=== PATIENT | female | born 1970 | race Hispanic/Latino ===

== ENCOUNTER 2016-10-31 13:13 | Day surgery (SDC) | payer MEDICAID ==
--- NOTE | 2016-10-31 13:43 | CP.SDSHP ---
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 - Previous Medical/Surgical History Cardiac: Other Pulmonary: Other Endocrine/Metabolic: Other Neuro: Other Misc: Other Pain: 6.Severe Pain Previous Surgical History: Inguinal hernia repair - Allergies Allergies: Allergies amoxicillin trihydrate [From Augmentin] Allergy (Verified 05/31/16 20:04) ITCHING banana Allergy (Verified 05/31/16 20:04) RASH latex Allergy (Verified 05/31/16 20:04) RASH potassium clavulanate [From Augmentin] Allergy (Verified 05/31/16 20:04) ITCHING sulfamethazine Allergy (Verified 05/31/16 20:04) RASH sulfamethoxazole [From Bactrim] Allergy (Verified 05/31/16 20:04) RASH trimethoprim [From Bactrim] Allergy (Verified 05/31/16 20:04) RASH meperidine HCl [From Demerol] Adverse Reaction (Verified 05/31/16 20:04) VOMITING - Physical Exam Mental Status: Alert & Oriented x3 Neuro: WNL Heart: WNL Lungs: WNL GI: WNL - {Optional Preform as Required} Breast: Other Abdomen: Other Rectal: Other Integument: Other 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 Pt NPO status was confirmed. All Pre-op testing and clearance was in the chart. Pt has exhausted all conservative treatment at this time and is opting for surgical intervention. Pt was explained procedure and post-operative course. All pt's questions were answered to satisfaction. No guarantees were made. Pt understands all risks, benefits and complications of procedure. Pt will follow-up with Dr. Heart Pt. Evaluated Today:Candidate for Anesthesia & Procedure: Yes - Date & Time Date: 10/31/16 Time: 16:10 Short Stay Discharge - Short Stay Discharge Admitting Diagnosis/Reason for Visit: S82.62XK Disposition: HOME/ ROUTINE Referrals: FAMILY PROVIDER,NO [Primary Care Provider] - Follow-up: Please follow up with Dr. Heart within 1 week Instructions: RICE Therapy (GEN), Crutch Instructions (DC), Crutch Instructions (GEN), Oxycodone/Acetaminophen (By mouth), Narcotic-Analgesic/ Acetaminophen (By mouth) Additional Instructions (Diet, Activity): Non-weightbearing to Left lower extremity with crutches Progress Note/Discharge Note with Instructions: Patient in good/stable condition for discharge home. Pt to resume medications per medical reconciliation. Resume regular diet. Please keep dressing clean, dry, & intact to surgical site, use plastic bag over bandage for showering, wear post op shoe at all times when ambulating, call clinic if you see signs of infection (redness, swelling, malodor), please make an appointment to see Dr. Heart in office/clinic within 1 week for post-op check.
[2016-10-31 14:04] VITALS: BMI 34.8
[2016-10-31] MEDS ORDERED: Lidocaine 1% Inj (20ml) IJ ONE (14:13)
[2016-10-31] MEDS ORDERED: Bupivacaine 0.5% 50 ML IJ ONE (14:13)
[2016-10-31] MEDS ORDERED: Clindamycin 600 MG in Sodium Chloride 0.9% 100 ML IVPB ONE (14:13)
[2016-10-31] MEDS ORDERED: Lactated Ringer's 1,000 ML IV SCH (14:15)
[2016-10-31] MEDS ORDERED: Propofol 10 mg/ml Inj (20 ML) ONE (16:19)
[2016-10-31] MEDS ORDERED: Midazolam 2 MG/2 ML VIAL ONE (16:20)
[2016-10-31] MEDS ORDERED: Dexamethasone 4 mg/1 ml ONE (16:40)
[2016-10-31] MEDS ORDERED: Sevoflurane - Inhalation Anesthetic Liq (250 ml) ONE (16:59)
[2016-10-31] MEDS ORDERED: Bupivacaine 0.5% Inj(30mL) ONE (17:35)
[2016-10-31] MEDS ORDERED: Bupivacaine 0.5% Inj(30mL) IJ ONE (17:50)
[2016-10-31] MEDS ORDERED: Lactated Ringer's 1,000 ML IV ONE (18:07)
--- NOTE | 2016-10-31 18:08 | CP.PCM.PN ---
Subjective - Date & Time of Evaluation Date of Evaluation: 10/31/16 Time of Evaluation: 13:00 - Subjective Subjective: 46 y/o female presents to [facility] for surgical excision of lateral malleolus fracture fragment and repair of lateral ankle ligaments. Patient states that she fell in May and injured her ankle. Patient was nonweightbearing with cast and crutches for four weeks. Following that she was full weightbearing with a lace up ankle support. Patient states that she is still having pain while ambulating and is now requesting surgical intervention. Objective - Vital Signs/Intake and Output Intake and Output: 10/31/16 10/31/16 06:59 18:59 Intake Total 0 Balance 0 - Medications Medications: Current Medications Lactated Ringer's (Lactated Ringer's) 1,000 mls @ 150 mls/hr IV .[id number] HARI - Additional Findings Additional findings: Vascular: DP and PT pulses palpable 2/4. CFT < 3 seconds to all digits. Skin temperature is warm to warm from proximal to distal. No erythema noted. Mild edema noted to left lateral ankle Derm: No open lesions noted. Neuro: Protective sensation intact. Pain sensation intact. Biomech/Musc: Patient presents with antalgic gait, with slight limp to left side. Patient presents with slight shoulder drop to right shoulder, and right hip higher than left during gait. Increased internal rotation of left lower extremity during swing phase. Delayed heel off with left lower extremity. Decreased ankle joint ROM with mild pain and no crepitus to left. Decreased dorsiflexion at ankle joint with knee extended, increased with knee flexed. Positive anterior drawer sign noted to left ankle as well as increased talar tilt. Pain with palpation of ATFL, CFL, and PTFL on the left. Subtalar joint ROM is full without pain. MTJ ROM is full without pain or crepitus. 1st ray ROM is full without pain or crepitus. Assessment and Plan - Assessment and Plan (Free Text) Assessment: Pt was seen and examined in [facility]. Biomechanical analysis performed. Pt NPO status was confirmed. All Pre-op testing and clearance was in the chart. Pt has exhausted all conservative treatment at this time and is opting for surgical intervention. Pt was explained procedure and post-operative course. All pt's questions were answered to satisfaction. No guarantees were made. Pt understands all risks, benefits and complications of procedure. Pt will follow-up with Dr. Heart
[2016-10-31] MEDS ORDERED: HYDROmorphone 0.5 mg/0.5 ml ISec IVP PRN (18:09)
--- NOTE | 2016-10-31 18:10 | PCM.SURG1 ---
Surgeon's Initial Post Op Note - Surgeon's Notes Surgeon: Una BLACK Engineer Third Assistant: Vannesa PGY3 Type of Anesthesia: General LMA Anesthesia Administered By: Anup Pre-Operative Diagnosis: Left fibular fracture nonunion Operative Findings: See dictation Post-Operative Diagnosis: SAME Operation Performed: Left foot excision of osseous fragments and repair of lateral ankle ligaments Specimen/Specimens Removed: None Estimated Blood Loss: EBL {In ML}: 5 Blood Products Given: N/A Drains Used: No Drains Post-Op Condition: Good Date of Surgery/Procedure: 10/31/16 Time of Surgery/Procedure: 15:00
--- NOTE | 2016-11-01 20:55 | OP ---
PROCEDURE DATE: 10/31/2016 SURGEON: Dr. Dar Heart. ROUGH ROUNDER: PREOPERATIVE DIAGNOSIS: Nonunion distal lateral malleolus fracture of the left lower extremity. POSTOPERATIVE DIAGNOSIS: Nonunion distal lateral malleolus fracture of the left lower extremity. PROCEDURES: Excision of fracture fragment, left lateral malleolus, with primary repair of lateral an kle ligaments. ANESTHESIA: General. HEMOSTASIS: Thigh tourniquet at 325 mmHg. DESCRIPTION OF PROCEDURE: The patient was brought to the operating room and positioned supine on the operating room table. A bump was placed under the left hip and the leg was raised off of the table with a bump behind the lower leg. After induction of general anesthesia, the patient was prepped and draped in the usual sterile manner. An Esmarch bandage was used to exsanguinate the foot and ankle and the tourniquet was inflated. A short linear incision was made over the distal aspect of the late ral malleolus extending slightly inferior to the talus. Utilizing meticulous sharp and blunt dissect ion, the incision was deepened through the subcutaneous layer. All bleeders encountered were clamped , cut and coagulated with a Bovie unit. No major neurovascular structures were encountered. A linea r incision was made into the periosteum over the fibula and synovial fluid extruded into the incision . The fracture fragment was easily identified and there was noted to be no osseous bridging of the f ragment. The fragment was inspected and found to be rather large. The original plan had been to exc ise the fragment; however, due to the size of the fragment, an attempt was made to fixate the fractur e with a cannulated screw. The K-wire was driven into the fibula through the fracture fragment and u tilizing intraoperative fluoroscopy, placement was confirmed. A cannulated screw was driven over the fracture fragment; however, the fracture fragment fragmented during placement of the screw. The scr ew and K-wire were therefore removed and the fracture fragment was excised as was the original plan. The surgical site was then irrigated with sterile saline solution. The peroneal tendons were examin ed and found to be intact. A Mitek anchor was then placed into the fibula and with the foot in maxim al dorsiflexion and eversion, the calcaneal fibular ligament was repaired and reinforced. The surgic al site was then irrigated with sterile saline solution. The subcutaneous layer was then repaired wi th 3-0 Vicryl suture and the skin was repaired with 4-0 nylon suture. A postoperative injection of 0 .5% plain Marcaine was administered. A total of 15 mL was administered. A dry sterile compressive d ressing was applied and the tourniquet was deflated. There was noted to be instant hyperemic respons e to all 5 digits. A [id number] posterior splint was then applied with the ankle in dorsiflexion and slight eversion. The patient was stable throughout the entire procedure and tolerated the proce dure well. The patient was returned to the recovery room in stable condition. Verbal and written in structions were provided for the patient as were prescriptions for pain management including Percocet and antibiotics including Keflex 500 mg 3 times a day. She was instructed on nonweightbearing with crutches. Dar Heart DPM cc: 750 TT: 11/01/2016 20:54:49 monique
[2016-11-02 15:44] VITALS: BP 130/84; PULSE 88; RESP 18; TEMP 97.3; O2SAT 99
== END 2016-10-31 19:50 | disposition home or self-care (01) ==
LOC: H.OPSURG 13:13
PROVIDERS: ATTEND Podiatrist Foot & Ankle Surgery
DX: S82.62XK Displaced fracture of lateral malleolus of left fibula, subsequent encounter for closed fracture with nonunion (principal); X58.XXXD Exposure to other specified factors, subsequent encounter; Z88.1 Allergy status to other antibiotic agents; Z88.8 Allergy status to other drugs, medicaments and biological substances

== ENCOUNTER 2017-03-24 20:02 | Emergency (ER) | payer MEDICAID ==
[2017-03-24 20:04] VITALS: BMI 34.8
[2017-03-24 20:14] VITALS: RESP 16; O2SAT 98
[2017-03-24] MEDS ORDERED: Sodium Chloride 0.9% 1,000 ML IV STA ×2 (20:46→21:50)
--- NOTE | 2017-03-24 20:49 | ED PDOC ---
HPI: Abdomen Time Seen by Provider: 03/24/17 20:23 Chief Complaint (Nursing): GI Problem Chief Complaint (Provider): Nausea History Per: Patient History/Exam Limitations: no limitations Onset/Duration Of Symptoms: Mins Additional Complaint(s): Patient is a 46 year old female with a past medical history of rheumatoid arthritis, fibromyalgia, asthma, and depression presenting to the emergency department for sudden, "heaving" nausea after getting a "whiff of food" with associated general discomfort. Notes that she was discharged from [facility] this afternoon for the same symptoms, for which she was given Zofran. Attributes her medication, unsatisfactory experience at [facility], and the cessation of her monthly infusions for her RA to her sudden nausea. Denies dysuria and other complaints. PCP: Dr. Orta. Past Medical History Reviewed: Historical Data, Nursing Documentation, Vital Signs Vital Signs: Last Vital Signs Temp 98.2 F 03/24/17 20:08 Pulse 101 H 03/24/17 20:08 Resp 16 03/24/17 20:08 BP 131/92 H 03/24/17 20:08 Pulse Ox 98 03/24/17 20:59 - Medical History PMH: Anxiety, Arthritis, Asthma, Bronchitis (4 MONTH AGO), CAD (early), Depression, Fibromyalgia, HTN, Migraine, Rheumatoid Arthritis Denies: Chronic Kidney Disease - Surgical History Surgical History: Hernia Repair - Family History Family History: States: Unknown Family Hx, CAD (Father) - Social History Current smoker - smoking cessation education provided: No Ex-Smoker (has not smoked in the last 12 months): Yes Alcohol: None Drugs: Denies - Immunization History Hx Tetanus Toxoid Vaccination: No Hx Influenza Vaccination: Yes (2014) Hx Pneumococcal Vaccination: Yes (2013) - Home Medications Home Medications: Ambulatory Orders Medication Instructions Recorded Ondansetron [Zofran Odt] 1 tab PO Q8H PRN #30 odt 08/31/14 Lidocaine 5% [Lidoderm] 1 ea TD DAILY #30 patch 10/05/16 Alendronate Sodium 70 mg PO SUN 10/31/16 Amitriptyline HCl 100 mg PO DAILY 10/31/16 Aspirin [Adult Low Dose Aspirin EC] 81 mg PO DAILY 10/31/16 Atorvastatin Calcium 20 mg PO DAILY 10/31/16 Biotin [Luis Biotin] 10,000 mcg PO DAILY 10/31/16 Calcium Carbonate [Calcium] 1,500 mg PO DAILY 10/31/16 Carvedilol [Coreg] 25 mg PO Q12 10/31/16 Cephalexin [Keflex] 500 mg PO TID 10/31/16 Clonazepam 0.5 mg PO Q12 10/31/16 Cyclobenzaprine [Flexeril] 5 mg PO Q8 PRN 10/31/16 DULoxetine [Cymbalta] 20 mg PO Q12 10/31/16 Estradiol 1 mg PO DAILY 10/31/16 Estradiol [Vagifem] 10 mcg PO MWF 10/31/16 Gabapentin [Neurontin] 600 mg PO Q8 10/31/16 Meclizine HCl 50 mg PO DAILY PRN 10/31/16 Milnacipran HCl [Savella] 50 mg PO Q12 10/31/16 Multivit/Iron/Folic Acid/Hb179 1 tab PO DAILY 10/31/16 [Luis Multi For Women Tab] Nabumetone [Relafen] 500 mg PO Q12 10/31/16 [place]-3 Fatty Acids [Fish Oil] 300 mg PO DAILY 10/31/16 Sumatriptan Succinate [Imitrex] 50 mg PO DAILY PRN 10/31/16 Trazodone HCl 150 mg PO DAILY 10/31/16 amLODIPine [Norvasc] 5 mg PO DAILY 10/31/16 oxyCODONE/Acetaminophen [Percocet 1 mg PO Q6 PRN 10/31/16 5/325 mg Tab] Famotidine [Pepcid] 20 mg PO BID #28 tab 03/24/17 Metoclopramide [Reglan] 10 mg PO TID PRN #15 tab 03/24/17 - Allergies Allergies/Adverse Reactions: Allergies Allergy/AdvReac Type Severity Reaction Status Date / Time amoxicillin trihydrate Allergy ITCHING Verified 05/31/16 20:04 [From Augmentin] banana Allergy RASH Verified 05/31/16 20:04 latex Allergy RASH Verified 05/31/16 20:04 potassium clavulanate Allergy ITCHING Verified 05/31/16 20:04 [From Augmentin] sulfamethazine Allergy RASH Verified 05/31/16 20:04 sulfamethoxazole Allergy RASH Verified 05/31/16 20:04 [From Bactrim] trimethoprim [From Bactrim] Allergy RASH Verified 05/31/16 20:04 meperidine HCl [From Demerol] AdvReac VOMITING Verified 05/31/16 20:04 Review of Systems ROS Statement: Except As Marked, All Systems Reviewed And Found Negative Constitutional: Positive for: Other (discomfort) Gastrointestinal: Positive for: Nausea Genitourinary Female: Negative for: Dysuria Physical Exam - Reviewed Nursing Documentation Reviewed: Yes Vital Signs Reviewed: Yes - Physical Exam Appears: Positive for: Well, Non-toxic, No Acute Distress Head Exam: Positive for: ATRAUMATIC, NORMAL INSPECTION, NORMOCEPHALIC Skin: Positive for: Normal Color, Warm, Dry Eye Exam: Positive for: Normal appearance, PERRL. Negative for: Scleral icterus ENT: Positive for: Other (Dry mouth) Neck: Positive for: Normal, Supple Cardiovascular/Chest: Positive for: Regular Rate, Rhythm. Negative for: Murmur Respiratory: Positive for: Normal Breath Sounds. Negative for: Accessory Muscle Use, Respiratory Distress Gastrointestinal/Abdominal: Positive for: Normal Exam, Soft. Negative for: Tenderness Back: Positive for: Normal Inspection. Negative for: Vertebral Tenderness Extremity: Positive for: Normal ROM Neurologic/Psych: Positive for: Alert, Oriented - Laboratory Results Result Diagrams: 03/24/17 21:16 03/24/17 21:16 - ECG O2 Sat by Pulse Oximetry: 98 (RA) Pulse Ox Interpretation: Normal Medical Decision Making Medical Decision Making: Time: 20:43 Initial impression: Nausea Initial plan: Labs ED Urine Dipstick ED Urine Pepcid 20 mg IVP Reglan 10 mg IV Normal Saline 1 L IV Insertion Urinalysis Reevaluation Scribe Attestation: Documented by Angie Stearns, acting as a scribe for Ayaka Rowland MD. Provider Scribe Attestation: All medical record entries made by the Scribe were at my direction and personally dictated by me. I have reviewed the chart and agree that the record accurately reflects my personal performance of the history, physical exam, medical decision making, and the department course for this patient. I have also personally directed, reviewed, and agree with the discharge instructions and disposition. 10.55p - patient feeling a whole lot better. Mucosa moisture improved. patient ready for discharge. Disposition - Clinical Impression Clinical Impression: Gastritis - Patient ED Disposition Is Patient to be Admitted: No Doctor Will See Patient In The: Office Counseled Patient/Family Regarding: Diagnosis, Need For Followup, Rx Given - Disposition Disposition: Routine/Home Disposition Time: 22:45 Condition: IMPROVED Prescriptions: Famotidine [Pepcid] 20 mg PO BID #28 tab Metoclopramide [Reglan] 10 mg PO TID PRN #15 tab PRN Reason: Nausea/Vomiting Instructions: Gastritis (ED) Forms: [facility] (Z[place]ian) - POA Present On Arrival: None
[2017-03-24 21:26] LABS: RBC URINE < 1 /hpf (0-3); URINE BACTERIA OCC (<OCC); URINE BILIRUBIN NEGATIVE (NEGATIVE); URINE BLOOD NEGATIVE (NEGATIVE); URINE COLOR YELLOW (YELLOW); URINE GLUCOSE (UA) 150 mg/dL (Normal); URINE KETONE NEGATIVE (NEGATIVE); URINE LEUKOCYTE ESTERASE NEG Leu/uL (Negative); URINE PROTEIN NEGATIVE (NEGATIVE); URINE UROBILINOGEN 0.2-1.0 mg/dL (0.2-1.0); WBC URINE 1 /hpf (0-5)
[2017-03-24 21:27] LABS: BASO % 0.1 % (0.0-2.0); HEMATOCRIT 41.8 % (34.0-47.0); LYMPH # 0.6 K/uL (1.0-4.3); LYMPH % 15.5 % (20.0-40.0); MEAN CELL VOLUME 83.8 fl (81.0-99.0); MEAN CORPUSCULAR HEMOGLOBIN 28.4 pg (27.0-31.0); MEAN CORPUSCULAR HGB CONC 33.9 g/dL (33.0-37.0); MEAN PLATELET VOLUME 7.3 fl (7.2-11.7); MONO % 1.3 % (0.0-10.0); NEUT # 3.2 K/uL (1.8-7.0); NEUT % 83.1 % (50.0-75.0); RED CELL DISTRIBUTION WIDTH 12.8 % (11.5-14.5); WHITE BLOOD COUNT 3.8 K/uL (4.8-10.8)
[2017-03-24 21:32] LABS: ALB/GLOB RATIO 1.4 (1.0-2.1); ALKALINE PHOSPHATASE 85 U/L (38-126); ALT/SGPT 43 U/L (9-52); AST/SGOT 28 U/L (14-36); BILIRUBIN,TOTAL 0.4 mg/dl (0.2-1.3); BLOOD UREA NITROGEN 12 mg/dl (7-17); CARBON DIOXIDE 23 mmol/L (22-30); CHLORIDE 102 mmol/L (98-107); GFR AFRICAN-AMERICAN > 60; GLUCOSE,RANDOM 143 mg/dL (65-105); LIPASE 70 U/L (23-300); POTASSIUM 4.3 MMOL/L (3.6-5.0); SODIUM 138 mmol/l (132-148); TOTAL PROTEIN 7.6 G/DL (6.3-8.2)
[2017-03-24 23:07] VITALS: BP 139/86; PULSE 71; TEMP 97.6
== END 2017-03-24 23:55 | disposition home or self-care (01) ==
LOC: H.ER 20:02
DX: K29.70 Gastritis, unspecified, without bleeding (principal); F32.9 Major depressive disorder, single episode, unspecified; F41.9 Anxiety disorder, unspecified; I10 Essential (primary) hypertension; M79.7 Fibromyalgia; I25.10 Atherosclerotic heart disease of native coronary artery without angina pectoris; J45.909 Unspecified asthma, uncomplicated; Z79.82 Long term (current) use of aspirin; Z88.0 Allergy status to penicillin

== ENCOUNTER 2017-04-07 20:57 | Emergency (ER) | payer MEDICAID ==
[2017-04-07 20:57] VITALS: BMI 34.8
[2017-04-07 21:17] VITALS: BP 122/73; PULSE 75; RESP 16; TEMP 98.6; O2SAT 99
[2017-04-07] MEDS ORDERED: diaZEpam 10 mg/2 ml Inj IM ONE (21:56)
--- NOTE | 2017-04-07 22:06 | ED PDOC ---
HPI: Back Time Seen by Provider: 04/07/17 21:23 Chief Complaint (Nursing): Back Pain Chief Complaint (Provider): back pain History Per: Patient History/Exam Limitations: no limitations Previous Symptoms: Back Pain Additional Complaint(s): 46yo F Ed for eval of acute lower back pain noted today after"stepping wrong " and felt intense pain to mid spine without radiation to LE, numbness/tingling in LE, abd pain, hip pain, N/V/dizziness/[place], or fall. admits to hx of L4-L5 lumbar herniation. no hematuira or dysuria. - Risk Factors AAA Risk Factors: Neg: Older Than 49 Years Of Age, Hypertension, Connective Tissue Disease, Marfan's Syndrome, Sonja-Danlos Syndrome, Prior AAA, 1st Degree Relative/s With AAA Past Medical History Reviewed: Historical Data, Nursing Documentation, Vital Signs Vital Signs: Last Vital Signs Temp 98.6 F 04/07/17 21:15 Pulse 75 04/07/17 21:15 Resp 16 04/07/17 21:15 BP 122/73 04/07/17 21:15 Pulse Ox 99 04/07/17 21:15 - Medical History PMH: Anxiety, Arthritis, Asthma, Bronchitis (4 MONTH AGO), CAD (early), Depression, Fibromyalgia, HTN, Migraine, Rheumatoid Arthritis Denies: Chronic Kidney Disease - Surgical History Surgical History: Hernia Repair - Family History Family History: States: Unknown Family Hx, CAD (Father) - Immunization History Hx Tetanus Toxoid Vaccination: No Hx Influenza Vaccination: Yes (2014) Hx Pneumococcal Vaccination: Yes (2013) - Home Medications Home Medications: Ambulatory Orders Medication Instructions Recorded Ondansetron [Zofran Odt] 1 tab PO Q8H PRN #30 odt 08/31/14 Lidocaine 5% [Lidoderm] 1 ea TD DAILY #30 patch 10/05/16 Alendronate Sodium 70 mg PO SUN 10/31/16 Amitriptyline HCl 100 mg PO DAILY 10/31/16 Aspirin [Adult Low Dose Aspirin EC] 81 mg PO DAILY 10/31/16 Atorvastatin Calcium 20 mg PO DAILY 10/31/16 Biotin [Luis Biotin] 10,000 mcg PO DAILY 10/31/16 Calcium Carbonate [Calcium] 1,500 mg PO DAILY 10/31/16 Carvedilol [Coreg] 25 mg PO Q12 10/31/16 Cephalexin [Keflex] 500 mg PO TID 10/31/16 Clonazepam 0.5 mg PO Q12 10/31/16 Cyclobenzaprine [Flexeril] 5 mg PO Q8 PRN 10/31/16 DULoxetine [Cymbalta] 20 mg PO Q12 10/31/16 Estradiol 1 mg PO DAILY 10/31/16 Estradiol [Vagifem] 10 mcg PO MWF 10/31/16 Gabapentin [Neurontin] 600 mg PO Q8 10/31/16 Meclizine HCl 50 mg PO DAILY PRN 10/31/16 Milnacipran HCl [Savella] 50 mg PO Q12 10/31/16 Multivit/Iron/Folic Acid/Hb179 1 tab PO DAILY 10/31/16 [Luis Multi For Women Tab] Nabumetone [Relafen] 500 mg PO Q12 10/31/16 [place]-3 Fatty Acids [Fish Oil] 300 mg PO DAILY 10/31/16 Sumatriptan Succinate [Imitrex] 50 mg PO DAILY PRN 10/31/16 Trazodone HCl 150 mg PO DAILY 10/31/16 amLODIPine [Norvasc] 5 mg PO DAILY 10/31/16 oxyCODONE/Acetaminophen [Percocet 1 mg PO Q6 PRN 10/31/16 5/325 mg Tab] Famotidine [Pepcid] 20 mg PO BID #28 tab 03/24/17 Metoclopramide [Reglan] 10 mg PO TID PRN #15 tab 03/24/17 Cyclobenzaprine [Cyclobenzaprine 10 mg PO BID #14 tab 04/07/17 HCl] - Allergies Allergies/Adverse Reactions: Allergies Allergy/AdvReac Type Severity Reaction Status Date / Time amoxicillin trihydrate Allergy ITCHING Verified 05/31/16 20:04 [From Augmentin] banana Allergy RASH Verified 05/31/16 20:04 latex Allergy RASH Verified 05/31/16 20:04 potassium clavulanate Allergy ITCHING Verified 05/31/16 20:04 [From Augmentin] sulfamethazine Allergy RASH Verified 05/31/16 20:04 sulfamethoxazole Allergy RASH Verified 05/31/16 20:04 [From Bactrim] trimethoprim [From Bactrim] Allergy RASH Verified 05/31/16 20:04 meperidine HCl [From Demerol] AdvReac VOMITING Verified 05/31/16 20:04 Review of Systems ROS Statement: Except As Marked, All Systems Reviewed And Found Negative Constitutional: Negative for: Fever, Chills Musculoskeletal: Positive for: Back Pain Physical Exam - Reviewed Nursing Documentation Reviewed: Yes Vital Signs Reviewed: Yes - Physical Exam Appears: Positive for: Non-toxic, No Acute Distress, Uncomfortable Skin: Positive for: Normal Color, Warm, DRY Cardiovascular/Chest: Positive for: Regular Rate, Rhythm Respiratory: Positive for: CNT, Normal Breath Sounds Gastrointestinal/Abdominal: Positive for: Normal Exam, Bowel Sounds, Soft Back: Positive for: Vertebral Tenderness. Negative for: L CVA Tenderness, R CVA Tenderness, Decreased ROM, Muscle Spasm Extremity: Positive for: Normal ROM Neurologic/Psych: Positive for: Alert, Oriented - ECG O2 Sat by Pulse Oximetry: 99 - Progress ED Course And Treament: pt given IM valium and torodol. Medical Decision Making Medical Decision Making: pt improved in ED, advised to use mortrin for pain control and given flexril Disposition - Clinical Impression Clinical Impression: Acute back pain - Patient ED Disposition Is Patient to be Admitted: No Counseled Patient/Family Regarding: Diagnosis, Need For Followup, Rx Given - Disposition Referrals: [facility] [Outside] Disposition: Routine/Home Disposition Time: 22:21 Condition: STABLE Prescriptions: Cyclobenzaprine [Cyclobenzaprine HCl] 10 mg PO BID #14 tab Instructions: Acute Low Back Pain (ED) Forms: [facility] ED School/Work Excuse
[2017-04-07] MEDS ORDERED: diaZEpam 10 mg/2 ml Inj ONE (22:08)
== END 2017-04-07 22:30 | disposition home or self-care (01) ==
LOC: H.ER 20:57
DX: M54.2 Cervicalgia (principal); F32.9 Major depressive disorder, single episode, unspecified; F41.9 Anxiety disorder, unspecified; I10 Essential (primary) hypertension; I25.10 Atherosclerotic heart disease of native coronary artery without angina pectoris; M79.7 Fibromyalgia; Z79.82 Long term (current) use of aspirin; Z88.0 Allergy status to penicillin
CPT/HCPCS: 96372; 99282; J1885; J3360

== ENCOUNTER 2017-04-27 10:52 | Observation (INO) | payer MEDICAID ==
[2017-04-27 11:02] VITALS: BMI 31.6
[2017-04-27] MEDS ORDERED: Sodium Chloride 0.9% 500 ML IV STA (11:19)
--- NOTE | 2017-04-27 11:31 | ED PDOC ---
HPI: Chest Pain Time Seen by Provider: 04/27/17 11:08 Chief Complaint (Nursing): Chest Pain Chief Complaint (Provider): Chest pain History Per: Patient History/Exam Limitations: no limitations Onset/Duration Of Symptoms: Days (Today) Current Symptoms Are (Timing): Gone Now Additional Complaint(s): Pt. with chest pain sternal this morning. Gone now. No nausea, vomit, diarrhea , weakness, headaches, dizziness, cough. No leg pain. Has had similar in the past and was angina 2 years ago. On estrogen for years. Took 81mg asa in the morning. Past Medical History Reviewed: Nursing Documentation, Vital Signs Vital Signs: Last Vital Signs Temp 96 F L 04/27/17 11:01 Pulse 76 04/27/17 11:06 Resp 16 04/27/17 11:01 BP 131/84 04/27/17 11:01 Pulse Ox 96 04/27/17 11:39 - Medical History PMH: Anxiety, Arthritis, Asthma, Bronchitis (4 MONTH AGO), CAD (early), Depression, Fibromyalgia, HTN, Hyperlipidemia, Migraine, Rheumatoid Arthritis Denies: Chronic Kidney Disease - Surgical History Surgical History: Hernia Repair - Family History Family History: States: Unknown Family Hx, CAD (Father) - Immunization History Hx Tetanus Toxoid Vaccination: No Hx Influenza Vaccination: Yes (2014) Hx Pneumococcal Vaccination: Yes (2013) - Home Medications Home Medications: Ambulatory Orders Medication Instructions Recorded Ondansetron [Zofran Odt] 1 tab PO Q8H PRN #30 odt 08/31/14 Lidocaine 5% [Lidoderm] 1 ea TD DAILY #30 patch 10/05/16 Alendronate Sodium 70 mg PO SUN 10/31/16 Amitriptyline HCl 100 mg PO DAILY 10/31/16 Aspirin [Adult Low Dose Aspirin EC] 81 mg PO DAILY 10/31/16 Atorvastatin Calcium 20 mg PO DAILY 10/31/16 Biotin [Luis Biotin] 10,000 mcg PO DAILY 10/31/16 Calcium Carbonate [Calcium] 1,500 mg PO DAILY 10/31/16 Carvedilol [Coreg] 25 mg PO Q12 10/31/16 Cephalexin [Keflex] 500 mg PO TID 10/31/16 Clonazepam 0.5 mg PO Q12 10/31/16 Cyclobenzaprine [Flexeril] 5 mg PO Q8 PRN 10/31/16 DULoxetine [Cymbalta] 20 mg PO Q12 10/31/16 Estradiol 1 mg PO DAILY 10/31/16 Estradiol [Vagifem] 10 mcg PO MWF 10/31/16 Gabapentin [Neurontin] 600 mg PO Q8 10/31/16 Meclizine HCl 50 mg PO DAILY PRN 10/31/16 Milnacipran HCl [Savella] 50 mg PO Q12 10/31/16 Multivit/Iron/Folic Acid/Hb179 1 tab PO DAILY 10/31/16 [Luis Multi For Women Tab] Nabumetone [Relafen] 500 mg PO Q12 10/31/16 [place]-3 Fatty Acids [Fish Oil] 300 mg PO DAILY 10/31/16 Sumatriptan Succinate [Imitrex] 50 mg PO DAILY PRN 10/31/16 Trazodone HCl 150 mg PO DAILY 10/31/16 amLODIPine [Norvasc] 5 mg PO DAILY 10/31/16 oxyCODONE/Acetaminophen [Percocet 1 mg PO Q6 PRN 10/31/16 5/325 mg Tab] Famotidine [Pepcid] 20 mg PO BID #28 tab 03/24/17 Metoclopramide [Reglan] 10 mg PO TID PRN #15 tab 03/24/17 Back Brace [Ultra Support] 1 each MC DAILY #1 each 04/07/17 Cyclobenzaprine [Cyclobenzaprine 10 mg PO BID #14 tab 04/07/17 HCl] - Allergies Allergies/Adverse Reactions: Allergies Allergy/AdvReac Type Severity Reaction Status Date / Time amoxicillin trihydrate Allergy ITCHING Verified 05/31/16 20:04 [From Augmentin] banana Allergy RASH Verified 05/31/16 20:04 latex Allergy RASH Verified 05/31/16 20:04 potassium clavulanate Allergy ITCHING Verified 05/31/16 20:04 [From Augmentin] sulfamethazine Allergy RASH Verified 05/31/16 20:04 sulfamethoxazole Allergy RASH Verified 05/31/16 20:04 [From Bactrim] trimethoprim [From Bactrim] Allergy RASH Verified 05/31/16 20:04 meperidine HCl [From Demerol] AdvReac VOMITING Verified 05/31/16 20:04 Review of Systems ROS Statement: Except As Marked, All Systems Reviewed And Found Negative Cardiovascular: Positive for: Chest Pain Physical Exam - Reviewed Nursing Documentation Reviewed: Yes Vital Signs Reviewed: Yes - Physical Exam Appears: Positive for: Non-toxic, No Acute Distress Head Exam: Positive for: ATRAUMATIC, NORMAL INSPECTION, NORMOCEPHALIC Skin: Positive for: Normal Color, Warm, DRY Eye Exam: Positive for: EOMI, Normal appearance, PERRL ENT: Positive for: Normal ENT Inspection Neck: Positive for: Normal, Painless ROM Cardiovascular/Chest: Positive for: Regular Rate, Rhythm, Chest Non Tender. Negative for: Edema Respiratory: Positive for: CNT, Normal Breath Sounds Gastrointestinal/Abdominal: Positive for: Normal Exam, Bowel Sounds, Soft. Negative for: Tenderness Back: Positive for: Normal Inspection. Negative for: L CVA Tenderness, R CVA Tenderness Extremity: Positive for: Normal ROM. Negative for: Tenderness, Pedal Edema Neurologic/Psych: Positive for: Alert, Oriented - Laboratory Results Result Diagrams: 04/27/17 11:50 04/27/17 11:50 Interpretation Of Abn Labs: no acute - ECG ECG: Positive for: Interpreted By Me, Viewed By Me ECG Rhythm: Positive for: Normal QRS, Sinus Rhythm, Right Bundle Branch Block ( incomplete) O2 Sat by Pulse Oximetry: 96 Pulse Ox Interpretation: Normal - Radiology X-Ray: Read By Radiologist X-Ray Interpretation: No Acute Disease - Progress ED Course And Treament: 1251: Stable. AAOx3. Pain free. Will admit for further eval chest pain. Spoke with Joe for Dr. Luna. Will admit. Disposition - Clinical Impression Clinical Impression: Acute chest pain - Patient ED Disposition Is Patient to be Admitted: No Counseled Patient/Family Regarding: Studies Performed, Diagnosis - Disposition Disposition Time: 11:52 Condition: STABLE - Pt Status Changed To: Hospital Disposition Of: Inpatient - Admit Certification Admit to Inpatient:: After my assessment, the patient will require hospitalization for at least two midnights. This is because of the severity of symptoms shown, intensity of services needed, and/or the medical risk in this patient being treated as an outpatient. - POA Present On Arrival: None Core Measure Indicators: Chest Pain
--- NOTE | 2017-04-27 11:56 | RAD ---
HISTORY: pain COMPARISON: 03/26/2016 FINDINGS: LUNGS: The lungs are well inflated and clear. PLEURA: No significant pleural effusion identified, no pneumothorax apparent. CARDIOVASCULAR: Normal. OSSEOUS STRUCTURES: No significant abnormalities. VISUALIZED UPPER ABDOMEN: Normal. OTHER FINDINGS: None. IMPRESSION: No active pulmonary disease.
[2017-04-27 12:14] LABS: BASO % 0.4 % (0.0-2.0); EOS # 0.2 K/uL (0.0-0.7); EOS % 3.3 % (0.0-4.0); HEMATOCRIT 37.2 % (34.0-47.0); LYMPH # 1.3 K/uL (1.0-4.3); LYMPH % 20.4 % (20.0-40.0); MEAN CELL VOLUME 83.8 fl (81.0-99.0); MEAN CORPUSCULAR HEMOGLOBIN 28.5 pg (27.0-31.0); MEAN PLATELET VOLUME 7.5 fl (7.2-11.7); MONO # 0.5 K/uL (0.0-0.8); MONO % 7.3 % (0.0-10.0); NEUT # 4.3 K/uL (1.8-7.0); NEUT % 68.6 % (50.0-75.0); NRBC % 0.1 % (0.0-0.0); RED CELL DISTRIBUTION WIDTH 13.8 % (11.5-14.5); WHITE BLOOD COUNT 6.3 K/uL (4.8-10.8)
[2017-04-27 12:19] LABS: PARTIAL THROMBOPLASTIN TIME 23.9 Seconds (25.6-37.1)
[2017-04-27 12:23] LABS: ALB/GLOB RATIO 1.5 (1.0-2.1); ALKALINE PHOSPHATASE 60 U/L (38-126); ALT/SGPT 34 U/L (9-52); AST/SGOT 26 U/L (14-36); BILIRUBIN,TOTAL 0.5 mg/dl (0.2-1.3); BLOOD UREA NITROGEN 15 mg/dl (7-17); CALCIUM 8.1 mg/dL (8.4-10.2); CARBON DIOXIDE 26 mmol/L (22-30); CHLORIDE 104 mmol/L (98-107); GFR AFRICAN-AMERICAN > 60; GLUCOSE,RANDOM 83 mg/dL (65-105); POTASSIUM 3.9 MMOL/L (3.6-5.0); SODIUM 140 mmol/l (132-148); TOTAL PROTEIN 6.4 G/DL (6.3-8.2)
[2017-04-27] MEDS ORDERED: Albuterol HFA 90 mcg/actuation (8 g) IH PRN (15:20)
--- NOTE | 2017-04-27 16:07 | CARD ---
APPROVED REPORT EKG Measurement Heart [id number] <Conclusion> Poor data quality, interpretation may be adversely affected Normal sinus rhythm Incomplete right bundle branch block Borderline ECG
[2017-04-27] MEDS ORDERED: Influenza Vaccine 18yr & older 0.5 ML/45 MCG SYR IM ONE (16:20)
[2017-04-27] MEDS: Nabumetone 500 MG TAB PO SCH (17:42)
--- NOTE | 2017-04-27 21:17 | CP.PCM.CON ---
History of Present Illness - History of Present Illness History of Present Illness: PT WITH CHEST PRESSURE X 5MIN TODAY. EPISODE OCCURED AT REST AND DID NOT INCREASE WITH AMBULATION. RESOLVED ON OWN. PT ON ASA DAILY. PT HAS HX OF HTN , DYSLIPIDEMIA, TOB HX, AND FAM HX OF CAD. 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 HOWEVER SHE WAS STARTED ON ASA, MAYBE DUE TO MILD CAD. Review of Systems - Constitutional Constitutional: As Per HPI. absent: Anorexia, Chills, Daytime Sleepiness, Excessive Sweating, Fatigue, Fever, Frequent Falls, Headache, Increased Appetite , Lethargy, Malaise, Night Sweats, Snoring, Sleep Apnea, Weight Gain, Weight Loss, Weakness, Other - EENT Eyes: As Per HPI. absent: Blind Spots, Blurred Vision, Change in Vision, Decreased Night Vision, Diplopia, Discharge, Dry Eye, Exophthalmos, Floaters, Irritation, Itchy Eyes, Loss of Peripheral Vision, Pain, Photophobia, Requires Corrective Lenses, Sees Flashes, Spots in Vision, Tunnel Vision, Other Visual Disturbances, Loss of Vision, Other Ears: As Per HPI. absent: Decreased Hearing, Ear Discharge, Ear Pain, Tinnitus , Abnormal Hearing, Disequilibrium, Dizziness, Other Nose/Mouth/Throat: As Per HPI. absent: Epistaxis, Nasal Congestion, Nasal Discharge, Nasal Obstruction, Nasal Trauma, Nose Pain, Post Nasal Drip, Sinus Pain, Sinus Pressure, Bleeding Gums, Change in Voice, Dental Pain, Dry Mouth, Dysphagia, Halitosis, Hoarsness, Lip Swelling, Mouth Lesions, Mouth Pain, Odynophagia, Sore Throat, Throat Swelling, Tongue Swelling, Facial Pain, Neck Pain, Neck Mass, Other - Breasts Breasts: As Per HPI. absent: Change in Shape, Mass, Pain, Nipple Discharge, Nipple Inversion, Skin Changes, Swelling, Other - Cardiovascular Cardiovascular: Chest Pain at Rest. absent: As Per HPI, Acrocyanosis, Chest Pain, Chest Pain with Activity, Claudication, Diaphoresis, Dyspnea, Dyspnea on Exertion, Edema, Irregular Heart Rhythm, Pain Radiating to Arm/Neck/Jaw, Leg Edema, Leg Ulcers, Lightheadedness, Orthopnea, Palpitations, Paroxysmal Nocturnal Dyspnea, Pedal Edema, Radiating Pain, Rapid Heart Rate, Slow Heart Rate, Syncope, Other - Respiratory Respiratory: As Per HPI. absent: Cough, Dyspnea, Hemoptysis, Dyspnea on Exertion, Wheezing, Snoring, Stridor, Pain on Inspiration, Chest Congestion, Excessive Mucous Production, Change in Mucous Color, Pain with Coughing, Other - Gastrointestinal Gastrointestinal: As Per HPI. absent: Abdominal Pain, Belching, Bloating, Change in Bowel Habits, Change in Stool Character, Coffee Ground Emesis, Constipation, Cramping, Diarrhea, Dyspepsia, Dysphagia, Early Satiety, Excessive Flatus, Fecal Incontinence, Heartburn, Hematemesis, Hematochezia, Loose Stools, Melena, Nausea, Odynophagia, Temesmus, Vomiting, Other - Genitourinary Genitourinary: As Per HPI. absent: Change in Urinary Stream, Difficulty Urinating, Dysuria, Flank Pain, Hematuria, Pyuria, Nocturia, Urinary Incontinence, Urinary Frequency, Urinary Hesitance, Urinary Urgency, Voiding Freq/Small Amts, Freq UTI, Hx Renal/Bladder Calculi, Hx /Renal Surgery, Bladder Distension, Other - Reproductive: Female Reproductive:Female: As Per HPI. absent: Amenorrhea, Amenorrhea/ Control, Currently Menstual, Cycle <21 Days, Cycle >35 Days, Cycle Variable, Menses 1-7 Days, Menses >/= 8 Days, Menses Variable, Cycle > 4 Weeks Between, No Menses for 6 Months, Heavy Menses, Light Menses, Normal Menses, Spotting Between Cycles , S/P Hysterectomy, Menopausal, Post Menopausal, Premenarche, Abnormal Vaginal Bleeding, Dysmenorrhea, Dyspareunia, Genital Lesions, Genital Pruritis, Pelvic Pain, Prolapse Symptoms, Sexual Dysfunction, Vaginal Discharge, Vaginal Dryness , Vaginal Odor, Vaginal Pruritis, Other - Menstruation Menstruation: As Per HPI. absent: Amenorrhea, Amenorrhea/ Control, Currently Menstual, Cycle <21 Days, Cycle >35 Days, Cycle Variable, Menses 1-7 Days, Menses >/= 8 Days, Menses Variable, Cycle > 4 Weeks Between, No Menses for 6 Months, Heavy Menses, Light Menses, Normal Menses, Spotting Between Cycles , S/P Hysterectomy, Menopausal, Post Menopausal, Premenarche, Abnormal Vaginal Bleeding, Dysmenorrhea, Other - Musculoskeletal Musculoskeletal: As Per HPI. absent: Abnormal Gait, Arthralgias, Atrophy, Back Pain, Deformity, Joint Swelling, Limited Range of Motion, Loss of Height, Muscle Cramps, Muscle Weakness, Myalgias, Neck Pain, Numbness, Radiating Pain into Limb, Stiffness, Tingling, Other - Integumentary Integumentary: As Per HPI. absent: Acne, Alopecia, Bleeding Lesions, Change in Hair, Change in Nails, Change in Pigmentation, Changing Lesions, Dry Skin, Erythema, Furuncle, Hirsutism, Lesions, New Lesions, Non-Healing Lesions, Photosensitivity, Pruritus, Rash, Skin Pain, Skin Ulcer, Sores, Striae, Swelling , Unusual Bruising, Wounds, Jaundice, Other - Neurological Neurological: As Per HPI. absent: Abnormal Gait, Abnormal Hearing, Abnormal Movements, Abnormal Speech, Behavioral Changes, Burning Sensations, Confusion, Convulsions, Disequilibrium, Dizziness, Numbness, Focal Weakness, Frequent Falls , Headaches, Lack of Coordination, Loss of Vision, Memory Loss, Paresthesias, Radicular Pain, Restless Legs, Sensory Deficit, Syncope, Tingling, Tremor, Vertigo, Weakness, Other Visual Disturbances, Other - Psychiatric Psychiatric: As Per HPI. absent: Abnormal Sleep Pattern, Anhedonia, Anxiety, Auditory Hallucinations, Behavioral Changes, Change in Appetite, Change in Libido, Confusion, Depression, Difficulty Concentrating, Hallucinations, Homicidal Ideation, Hopelessness, Irritability, Memory Loss, Mood Swings, Panic Attacks, Paranoia, Suicidal Ideation, Visual Hallucinations, Tactile Hallucinations, Other - Endocrine Endocrine: As Per HPI. absent: Change in Body Appearance, Change in Libido, Cold Intolorance, Deepening of Voice, Excessive Sweating, Fatigue, Flushing, Heat Intolorance, Increase in Ring/Shoe/Hat Size, Palpitations, Polydipsia, Polyphagia, Polyuria, Other - Hematologic/Lymphatic Hematologic: As Per HPI. absent: Easy Bleeding, Easy Bruising, Lymphadenopathy , Other Past Patient History - Infectious Disease Hx of Infectious Diseases: None - Past Medical History & Family History Past Medical History?: Yes - Past Social History Smoking Status: Former Smoker Chewing Tobacco Use: No Cigar Use: No Alcohol: Occasional Drugs: Denies - CARDIAC Hx Cardiac Disorders: Yes - PULMONARY Hx Respiratory Disorders: Yes - NEUROLOGICAL Hx Neurological Disorder: Yes - HEENT Hx HEENT Problems: No - RENAL Hx Chronic Kidney Disease: No - ENDOCRINE/METABOLIC Hx Endocrine Disorders: No - HEMATOLOGICAL/ONCOLOGICAL Hx Blood Disorders: No - INTEGUMENTARY Hx Dermatological Problems: No - MUSCULOSKELETAL/RHEUMATOLOGICAL Hx Musculoskeletal Disorders: Yes Hx Falls: Yes (fall on 04/21/17) Hx Rheumatoid Arthritis: Yes - GASTROINTESTINAL Hx Gastrointestinal Disorders: No - GENITOURINARY/GYNECOLOGICAL Hx Genitourinary Disorders: No - PSYCHIATRIC Hx Psychophysiologic Disorder: Yes Hx Anxiety: Yes Hx Depression: Yes Hx Substance Use: No - SURGICAL HISTORY Hx Surgeries: Yes Hx Cardiac Catheterization: Yes Hx Hysterectomy: Yes - ANESTHESIA Hx Anesthesia: Yes Hx Anesthesia Reactions: No Hx Malignant Hyperthermia: No Meds Allergies/Adverse Reactions: Allergies Allergy/AdvReac Type Severity Reaction Status Date / Time amoxicillin trihydrate Allergy ITCHING Verified 05/31/16 20:04 [From Augmentin] banana Allergy RASH Verified 05/31/16 20:04 latex Allergy RASH Verified 05/31/16 20:04 potassium clavulanate Allergy ITCHING Verified 05/31/16 20:04 [From Augmentin] sulfamethazine Allergy RASH Verified 05/31/16 20:04 sulfamethoxazole Allergy RASH Verified 05/31/16 20:04 [From Bactrim] trimethoprim [From Bactrim] Allergy RASH Verified 05/31/16 20:04 meperidine HCl [From Demerol] AdvReac VOMITING Verified 05/31/16 20:04 - Medications Medications: Current Medications Albuterol (Ventolin Hfa 90 Mcg/Actuation (8 G)) 2 puff IH Q4H PRN PRN Reason: Shortness of Breath Alendronate Sodium (Fosamax) 70 mg PO SUN [facility] Amitriptyline HCl (Elavil) 100 mg PO HS [facility] Amlodipine Besylate (Norvasc) 5 mg PO DAILY [facility] Aspirin (Aspirin Chewable) 81 mg PO DAILY [facility] Atorvastatin Calcium (Lipitor) 20 mg PO HS [facility] Carvedilol (Coreg) 25 mg PO Q12H [facility] Last Admin: 04/27/17 17:41 Dose: 25 mg Clonazepam (Klonopin) 0.25 mg PO BID [facility] Last Admin: 04/27/17 17:51 Dose: 0.25 mg Cyclobenzaprine HCl (Flexeril) 5 mg PO Q8H [facility] Last Admin: 04/27/17 17:58 Dose: 5 mg Duloxetine HCl (Cymbalta) 30 mg PO Q12H [facility] Last Admin: 04/27/17 17:42 Dose: 30 mg Enoxaparin Sodium (Lovenox) 40 mg SC DAILY [facility] PRN Reason: Protocol Gabapentin (Neurontin) 600 mg PO TID [facility] Last Admin: 04/27/17 17:41 Dose: 600 mg Home Med (Calcium Carbonate/Vitamin D3 [Caltrate 600 Plus D3 Tablet]) 1 tab PO DAILY [facility] Home Med (Estradiol [Estrace]) 1 mg PO DAILY [facility] Home Med (Estradiol [Yuvafem]) 10 mcg PV MWF [facility] Home Med (Sumatriptan [Imitrex Tab]) 50 mg PO Q2H PRN PRN Reason: Migraine headache Nabumetone (Relafen) 500 mg PO BID [facility] Last Admin: 04/27/17 17:42 Dose: 500 mg Ondansetron HCl (Zofran Tab) 4 mg PO Q8H PRN PRN Reason: Nausea/Vomiting Trazodone HCl (Desyrel) 150 mg PO HS [facility] Physical Exam - Constitutional Appears: Well - Head Exam Head Exam: ATRAUMATIC, NORMAL INSPECTION, NORMOCEPHALIC - Eye Exam Eye Exam: EOMI, Normal appearance, PERRL. absent: Conjunctival injection, Nystagmus, Periorbital swelling, Periorbital tenderness, Scleral icterus Pupil Exam: NORMAL ACCOMODATION, PERRL. absent: Fixed, Irregular, Miosis, Mydriatic, Unequal - ENT Exam ENT Exam: Mucous Membranes Moist, Normal Exam. absent: Mucous Membranes Dry, Normal External Ear Exam, Normal Oropharynx, TM's Normal Bilaterally - Neck Exam Neck exam: Positive for: Normal Inspection. Negative for: Full Rom, Lymphadenopathy, Meningismus, Tenderness, Thyromegaly - Respiratory Exam Respiratory Exam: Clear to Auscultation Bilateral, NORMAL BREATHING PATTERN. absent: Accessory Muscle Use, Chest Wall Tenderness, Decreased Breath Sounds, Prolonged Expiratory Phase, Rales, Rhonchi, Wheezes, Respiratory Distress, Stridor - Cardiovascular Exam Cardiovascular Exam: REGULAR RHYTHM, +S1, +S2, Systolic Murmur. absent: Bradycardia, Tachycardia, Clicks, Diastolic murmur, Gallop, Irregular Rhythm, JVD, RRR, Rubs, +S4 - GI/Abdominal Exam GI & Abdominal Exam: Normal Bowel Sounds, Soft. absent: Bruit, Diminished Bowel Sounds, Distended, Firm, Guarding, Hernia, Hyperactive Bowel Sounds, Hypoactive Bowel Sounds, Mass, Organomegaly, Pulsatile Mass, Rebound, Rigid, Tenderness - Rectal Exam Rectal Exam: Deferred - Extremities Exam Extremities exam: Positive for: normal inspection. Negative for: calf tenderness, full ROM, joint swelling, normal capillary refill, pedal edema, tenderness, pedal pulses present - Back Exam Back exam: NORMAL INSPECTION. absent: CVA tenderness (L), CVA tenderness (R), FULL ROM, muscle spasm, paraspinal tenderness, rash noted, tenderness, vertebral tenderness - Neurological Exam Neurological exam: Alert, CN II-XII Intact, Normal Gait, Oriented x3, Reflexes Normal - Psychiatric Exam Psychiatric exam: Normal Affect, Normal Mood - Skin Skin Exam: Dry, Intact, Normal Color, Warm Results - Vital Signs Recent Vital Signs: Last Vital Signs Temp 97.7 F 04/27/17 19:46 Pulse 72 04/27/17 19:46 Resp 20 04/27/17 19:46 BP 117/78 04/27/17 19:46 Pulse Ox 96 04/27/17 19:46 - Labs Result Diagrams: 04/27/17 11:50 04/27/17 11:50 Labs: Laboratory Results - last 24 hr 04/27/17 04/27/17 04/27/17 11:50 11:50 11:50 WBC 6.3 D RBC 4.44 Hgb 12.6 Hct 37.2 MCV 83.8 MCH 28.5 MCHC 34.0 RDW 13.8 Plt Count 148 MPV 7.5 Neut % (Auto) 68.6 Lymph % (Auto) 20.4 [place] % (Auto) 7.3 Eos % (Auto) 3.3 Baso % (Auto) 0.4 Neut # 4.3 Lymph # 1.3 [place] # 0.5 Eos # 0.2 Baso # 0.0 PT 11.5 INR 1.1 APTT 23.9 L Sodium 140 Potassium 3.9 Chloride 104 Carbon Dioxide 26 Anion Gap 13 BUN 15 Creatinine 0.7 Est GFR ( Amer) > 60 Est GFR (Non-Af Amer) > 60 Random Glucose 83 Calcium 8.1 L Total Bilirubin 0.5 AST 26 ALT 34 Alkaline Phosphatase 60 Troponin I < 0.0120 Total Protein 6.4 Albumin 3.9 Globulin 2.5 Albumin/Globulin Ratio 1.5 04/27/17 18:20 WBC RBC Hgb Hct MCV MCH MCHC RDW Plt Count MPV Neut % (Auto) Lymph % (Auto) [place] % (Auto) Eos % (Auto) Baso % (Auto) Neut # Lymph # [place] # Eos # Baso # PT INR APTT Sodium Potassium Chloride Carbon Dioxide Anion Gap BUN Creatinine Est GFR ( Amer) Est GFR (Non-Af Amer) Random Glucose Calcium Total Bilirubin AST ALT Alkaline Phosphatase Troponin I < 0.0120 Total Protein Albumin Globulin Albumin/Globulin Ratio - EKG Data EKG Interpreted by: Myself EKG shows normal: Sinus rhythm Rate: Normal Assessment & Plan (1) Acute chest pain Status: Acute (2) HTN (hypertension) Status: Acute (3) Dyslipidemia Status: Acute (4) History of tobacco use Status: Acute (5) Family history of ischemic heart disease (IHD) Status: Acute - Assessment and Plan (Free Text) Plan: CP SEEMS ATYPICAL, HOWEVER GIVEN HER RISK FACTORS AND HX WOULD RECOMMEND ECHO AND EXERCISE NUCLEAR ST. CONTINUE MEDS IS. IF ST NORMAL THEN MAY GO HOME IF ABN WILL NEED CATH. I ORDERED THE ABOVE TESTING WELL LOVENOX PROPHYLAXIS, AND PPI. 60 MIN TOTAL CARE TIME.
[2017-04-28 06:49] LABS: BASO % 0.3 % (0.0-2.0); EOS # 0.2 K/uL (0.0-0.7); EOS % 3.4 % (0.0-4.0); HEMATOCRIT 39.6 % (34.0-47.0); LYMPH # 1.8 K/uL (1.0-4.3); LYMPH % 25.4 % (20.0-40.0); MEAN CELL VOLUME 84.6 fl (81.0-99.0); MEAN CORPUSCULAR HEMOGLOBIN 28.4 pg (27.0-31.0); MEAN CORPUSCULAR HGB CONC 33.6 g/dL (33.0-37.0); MEAN PLATELET VOLUME 7.4 fl (7.2-11.7); MONO # 0.6 K/uL (0.0-0.8); MONO % 8.3 % (0.0-10.0); NEUT # 4.4 K/uL (1.8-7.0); NEUT % 62.6 % (50.0-75.0); NRBC % 0.1 % (0.0-0.0); RED CELL DISTRIBUTION WIDTH 14.1 % (11.5-14.5)
[2017-04-28 07:03] LABS: ALB/GLOB RATIO 1.5 (1.0-2.1); ALKALINE PHOSPHATASE 66 U/L (38-126); ALT/SGPT 33 U/L (9-52); AST/SGOT 25 U/L (14-36); BILIRUBIN,TOTAL 0.5 mg/dl (0.2-1.3); BLOOD UREA NITROGEN 19 mg/dl (7-17); CALCIUM 8.2 mg/dL (8.4-10.2); CARBON DIOXIDE 28 mmol/L (22-30); CHLORIDE 103 mmol/L (98-107); GFR AFRICAN-AMERICAN > 60; GLUCOSE,RANDOM 77 mg/dL (65-105); MAGNESIUM 2.2 MG/DL (1.6-2.3); POTASSIUM 4.1 MMOL/L (3.6-5.0); SODIUM 144 mmol/l (132-148); TOTAL PROTEIN 6.4 G/DL (6.3-8.2)
[2017-04-28] MEDS ORDERED: Enoxaparin 40 mg Syringe SC SCH (09:00)
[2017-04-28] MEDS ORDERED: ESTRADIOL 1 MG PO SCH (09:00)
[2017-04-28] MEDS ORDERED: Calcium-Vit D 500 mg-200 Units Tab UD PO SCH (09:00)
[2017-04-28] MEDS ORDERED: ESTRADIOL 10 MCG PV SCH (09:00)
--- NOTE | 2017-04-28 09:09 | CP.PCM.HP ---
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 ceased upon arrival toer. descrbed as midsternal and nonradiation, non reproducable. trop x 3 negative. epnding stress test and echo. cardio consult appriciated. Present on Admission - Present on Admission Any Indicators Present on Admission: No Review of Systems - Cardiovascular Cardiovascular: As Per HPI, Chest Pain Past Patient History - Infectious Disease Hx of Infectious Diseases: None - Past Medical History & Family History Past Medical History?: Yes - Past Social History Smoking Status: Former Smoker Chewing Tobacco Use: No Cigar Use: No Alcohol: Occasional Drugs: Denies - CARDIAC Hx Cardiac Disorders: Yes - PULMONARY Hx Respiratory Disorders: Yes - NEUROLOGICAL Hx Neurological Disorder: Yes - HEENT Hx HEENT Problems: No - RENAL Hx Chronic Kidney Disease: No - ENDOCRINE/METABOLIC Hx Endocrine Disorders: No - HEMATOLOGICAL/ONCOLOGICAL Hx Blood Disorders: No - INTEGUMENTARY Hx Dermatological Problems: No - MUSCULOSKELETAL/RHEUMATOLOGICAL Hx Musculoskeletal Disorders: Yes Hx Falls: Yes (fall on 04/21/17) Hx Rheumatoid Arthritis: Yes - GASTROINTESTINAL Hx Gastrointestinal Disorders: No - GENITOURINARY/GYNECOLOGICAL Hx Genitourinary Disorders: No - PSYCHIATRIC Hx Psychophysiologic Disorder: Yes Hx Anxiety: Yes Hx Depression: Yes Hx Substance Use: No - SURGICAL HISTORY Hx Surgeries: Yes Hx Cardiac Catheterization: Yes Hx Hysterectomy: Yes - ANESTHESIA Hx Anesthesia: Yes Hx Anesthesia Reactions: No Hx Malignant Hyperthermia: No Meds Allergies/Adverse Reactions: Allergies Allergy/AdvReac Type Severity Reaction Status Date / Time amoxicillin trihydrate Allergy ITCHING Verified 05/31/16 20:04 [From Augmentin] banana Allergy RASH Verified 05/31/16 20:04 latex Allergy RASH Verified 05/31/16 20:04 potassium clavulanate Allergy ITCHING Verified 05/31/16 20:04 [From Augmentin] sulfamethazine Allergy RASH Verified 05/31/16 20:04 sulfamethoxazole Allergy RASH Verified 05/31/16 20:04 [From Bactrim] trimethoprim [From Bactrim] Allergy RASH Verified 05/31/16 20:04 meperidine HCl [From Demerol] AdvReac VOMITING Verified 05/31/16 20:04 Physical Exam - Constitutional Appears: Well, Non-toxic, No Acute Distress - Head Exam Head Exam: ATRAUMATIC, NORMAL INSPECTION, NORMOCEPHALIC - Eye Exam Eye Exam: EOMI, Normal appearance, PERRL Pupil Exam: NORMAL ACCOMODATION, PERRL - ENT Exam ENT Exam: Mucous Membranes Moist, Normal Exam - Neck Exam Neck exam: Positive for: Normal Inspection - Respiratory Exam Respiratory Exam: Clear to Auscultation Bilateral, NORMAL BREATHING PATTERN - Cardiovascular Exam Cardiovascular Exam: REGULAR RHYTHM, RRR, +S1, +S2 - GI/Abdominal Exam GI & Abdominal Exam: Normal Bowel Sounds, Soft. absent: Tenderness - Extremities Exam Extremities exam: Positive for: full ROM, normal capillary refill, normal inspection, pedal pulses present - Back Exam Back exam: NORMAL INSPECTION - Neurological Exam Neurological exam: Alert, CN II-XII Intact, Normal Gait, Oriented x3, Reflexes Normal - Psychiatric Exam Psychiatric exam: Normal Affect, Normal Mood - Skin Skin Exam: Dry, Intact, Normal Color, Warm Results - Vital Signs Recent Vital Signs: Last Vital Signs Temp 97.8 F 04/28/17 08:00 Pulse 62 04/28/17 08:00 Resp 20 04/28/17 08:00 BP 141/92 H 04/28/17 08:00 Pulse Ox 97 04/28/17 08:00 - Labs Result Diagrams: 04/28/17 05:00 04/28/17 04:00 Labs: Laboratory Results - last 24 hr 04/27/17 04/27/17 04/27/17 11:50 11:50 11:50 WBC 6.3 D RBC 4.44 Hgb 12.6 Hct 37.2 MCV 83.8 MCH 28.5 MCHC 34.0 RDW 13.8 Plt Count 148 MPV 7.5 Neut % (Auto) 68.6 Lymph % (Auto) 20.4 Citrus % (Auto) 7.3 Eos % (Auto) 3.3 Baso % (Auto) 0.4 Neut # 4.3 Lymph # 1.3 Citrus # 0.5 Eos # 0.2 Baso # 0.0 PT 11.5 INR 1.1 APTT 23.9 L Sodium 140 Potassium 3.9 Chloride 104 Carbon Dioxide 26 Anion Gap 13 BUN 15 Creatinine 0.7 Est GFR ( Amer) > 60 Est GFR (Non-Af Amer) > 60 Random Glucose 83 Calcium 8.1 L Magnesium Total Bilirubin 0.5 AST 26 ALT 34 Alkaline Phosphatase 60 Troponin I < 0.0120 Total Protein 6.4 Albumin 3.9 Globulin 2.5 Albumin/Globulin Ratio 1.5 04/27/17 04/28/17 04/28/17 18:20 04:00 05:00 WBC 7.0 RBC 4.69 Hgb 13.3 Hct 39.6 MCV 84.6 MCH 28.4 MCHC 33.6 RDW 14.1 Plt Count 163 MPV 7.4 Neut % (Auto) 62.6 Lymph % (Auto) 25.4 Citrus % (Auto) 8.3 Eos % (Auto) 3.4 Baso % (Auto) 0.3 Neut # 4.4 Lymph # 1.8 Citrus # 0.6 Eos # 0.2 Baso # 0.0 PT INR APTT Sodium 144 Potassium 4.1 Chloride 103 Carbon Dioxide 28 Anion Gap 17 BUN 19 H Creatinine 0.8 Est GFR ( Amer) > 60 Est GFR (Non-Af Amer) > 60 Random Glucose 77 Calcium 8.2 L Magnesium 2.2 Total Bilirubin 0.5 AST 25 ALT 33 Alkaline Phosphatase 66 Troponin I < 0.0120 < 0.0120 Total Protein 6.4 Albumin 3.8 Globulin 2.6 Albumin/Globulin Ratio 1.5 Assessment & Plan (1) DVT prophylaxis Assessment and Plan: scd and aehose ambulation lvoenox Status: Acute (2) Acute chest pain Assessment and Plan: trops x 3 negative cardio stress/echo today dc if normal asa lovenox Status: Acute (3) Dyslipidemia Assessment and Plan: cont home meds Status: Acute (4) Family history of ischemic heart disease (IHD) Assessment and Plan: full cardio workup Status: Acute (5) HTN (hypertension) Assessment and Plan: cont home meds Status: Acute Decision To Admit - Pt Status Changed To: Hospital Disposition Of: Observation - . Bed Request Type: Telemetry Admitting Physician: Jason Luna
[2017-04-28] MEDS: Nabumetone 500 MG TAB PO SCH ×2 (09:29→18:02)
[2017-04-28 15:34] VITALS: RESP 20; TEMP 97.6; O2SAT 99
[2017-04-28 15:38] VITALS: BP 140/90; PULSE 69
--- NOTE | 2017-04-28 17:45 | CP.PCM.PN ---
Objective - Vital Signs/Intake and Output Vital Signs (last 24 hours): Temp Pulse Resp BP Pulse Ox 97.6 F 69 20 140/90 99 04/28/17 15:33 04/28/17 15:34 04/28/17 15:33 04/28/17 15:34 04/28/17 15:33 - Medications Medications: Current Medications Albuterol (Ventolin Hfa 90 Mcg/Actuation (8 G)) 2 puff IH Q4H PRN PRN Reason: Shortness of Breath Alendronate Sodium (Fosamax) 70 mg PO SUN [facility] Amitriptyline HCl (Elavil) 100 mg PO [facility] Last Admin: 04/27/17 21:44 Dose: 100 mg Amlodipine Besylate (Norvasc) 5 mg PO DAILY [facility] Last Admin: 04/28/17 09:28 Dose: Not Given Aspirin (Aspirin Chewable) 81 mg PO DAILY [facility] Last Admin: 04/28/17 09:27 Dose: Not Given Atorvastatin Calcium (Lipitor) 20 mg PO [facility] Last Admin: 04/27/17 21:44 Dose: 20 mg Calcium/Vitamin D (Oyster Shell Calcium/Vitamin D 500 Mg-200 Iu) 1 tab PO DAILY [facility] Last Admin: 04/28/17 09:29 Dose: Not Given Carvedilol (Coreg) 25 mg PO Q12H [facility] Last Admin: 04/28/17 15:34 Dose: 25 mg Clonazepam (Klonopin) 0.25 mg PO BID [facility] Last Admin: 04/28/17 09:28 Dose: Not Given Cyclobenzaprine HCl (Flexeril) 5 mg PO Q8H [facility] Last Admin: 04/28/17 15:36 Dose: 5 mg Duloxetine HCl (Cymbalta) 30 mg PO Q12H [facility] Last Admin: 04/28/17 15:35 Dose: 30 mg Enoxaparin Sodium (Lovenox) 40 mg SC DAILY [facility] PRN Reason: Protocol Last Admin: 04/28/17 09:28 Dose: Not Given Gabapentin (Neurontin) 600 mg PO TID [facility] Last Admin: 04/28/17 13:00 Dose: Not Given Home Med (Estradiol [Estrace]) 1 mg PO DAILY [facility] Home Med (Estradiol [Yuvafem]) 10 mcg PV MWF [facility] Home Med (Sumatriptan [Imitrex Tab]) 50 mg PO Q2H PRN PRN Reason: Migraine headache Nabumetone (Relafen) 500 mg PO BID [facility] Last Admin: 04/28/17 09:29 Dose: Not Given Ondansetron HCl (Zofran Tab) 4 mg PO Q8H PRN PRN Reason: Nausea/Vomiting Trazodone HCl (Desyrel) 150 mg PO HS [facility] Last Admin: 04/27/17 21:42 Dose: 150 mg - Labs Labs: 04/28/17 05:00 04/28/17 04:00 PT 11.5 Seconds (9.8-13.1) 04/27/17 11:50 INR 1.1 (0.9-1.2) 04/27/17 11:50 APTT 23.9 Seconds (25.6-37.1) L 04/27/17 11:50 Assessment and Plan (1) Acute chest pain Status: Acute (2) HTN (hypertension) Status: Acute (3) Dyslipidemia Status: Acute (4) History of tobacco use Status: Acute (5) Family history of ischemic heart disease (IHD) Status: Acute
--- NOTE | 2017-04-28 18:13 | CP.PCM.DIS ---
Provider - Provider Date of Admission: 04/27/17 12:51 Attending physician: Jason Luna MD Time Spent in preparation of Discharge (in minutes): 15 Diagnosis - Discharge Diagnosis (1) DVT prophylaxis Status: Acute (2) Acute chest pain Status: Acute (3) Dyslipidemia Status: Acute (4) Family history of ischemic heart disease (IHD) Status: Acute (5) HTN (hypertension) Status: Acute Hospital Course - Lab Results Lab Results: Most Recent Lab Values WBC 7.0 K/uL (4.8-10.8) 04/28/17 05:00 RBC 4.69 Mil/uL (3.80-5.20) 04/28/17 05:00 Hgb 13.3 g/dL (12.0-16.0) 04/28/17 05:00 Hct 39.6 % (34.0-47.0) 04/28/17 05:00 MCV 84.6 fl (81.0-99.0) 04/28/17 05:00 MCH 28.4 pg (27.0-31.0) 04/28/17 05:00 MCHC 33.6 g/dL (33.0-37.0) 04/28/17 05:00 RDW 14.1 % (11.5-14.5) 04/28/17 05:00 Plt Count 163 K/uL (130-400) 04/28/17 05:00 MPV 7.4 fl (7.2-11.7) 04/28/17 05:00 Neut % (Auto) 62.6 % (50.0-75.0) 04/28/17 05:00 Lymph % (Auto) 25.4 % (20.0-40.0) 04/28/17 05:00 Starke % (Auto) 8.3 % (0.0-10.0) 04/28/17 05:00 Eos % (Auto) 3.4 % (0.0-4.0) 04/28/17 05:00 Baso % (Auto) 0.3 % (0.0-2.0) 04/28/17 05:00 Neut # 4.4 K/uL (1.8-7.0) 04/28/17 05:00 Lymph # 1.8 K/uL (1.0-4.3) 04/28/17 05:00 Starke # 0.6 K/uL (0.0-0.8) 04/28/17 05:00 Eos # 0.2 K/uL (0.0-0.7) 04/28/17 05:00 Baso # 0.0 K/uL (0.0-0.2) 04/28/17 05:00 PT 11.5 Seconds (9.8-13.1) 04/27/17 11:50 INR 1.1 (0.9-1.2) 04/27/17 11:50 APTT 23.9 Seconds (25.6-37.1) L 04/27/17 11:50 Sodium 144 mmol/l (132-148) 04/28/17 04:00 Potassium 4.1 MMOL/L (3.6-5.0) 04/28/17 04:00 Chloride 103 mmol/L (98-107) 04/28/17 04:00 Carbon Dioxide 28 mmol/L (22-30) 04/28/17 04:00 Anion Gap 17 (10-20) 04/28/17 04:00 BUN 19 mg/dl (7-17) H 04/28/17 04:00 Creatinine 0.8 mg/dL (0.7-1.2) 04/28/17 04:00 Est GFR ( Amer) > 60 04/28/17 04:00 Est GFR (Non-Af Amer) > 60 04/28/17 04:00 Random Glucose 77 mg/dL (65-105) 04/28/17 04:00 Calcium 8.2 mg/dL (8.4-10.2) L 04/28/17 04:00 Magnesium 2.2 MG/DL (1.6-2.3) 04/28/17 04:00 Total Bilirubin 0.5 mg/dl (0.2-1.3) 04/28/17 04:00 AST 25 U/L (14-36) 04/28/17 04:00 ALT 33 U/L (9-52) 04/28/17 04:00 Alkaline Phosphatase 66 U/L (38-126) 04/28/17 04:00 Troponin I < 0.0120 ng/mL (0.00-0.120) 04/28/17 04:00 Total Protein 6.4 G/DL (6.3-8.2) 04/28/17 04:00 Albumin 3.8 g/dL (3.5-5.0) 04/28/17 04:00 Globulin 2.6 gm/dL (2.2-3.9) 04/28/17 04:00 Albumin/Globulin Ratio 1.5 (1.0-2.1) 04/28/17 04:00 Discharge Exam - Head Exam Head Exam: ATRAUMATIC, NORMAL INSPECTION, NORMOCEPHALIC Discharge Plan - Follow Up Plan Condition: STABLE Disposition: HOME/ ROUTINE Additional Instructions: cleared by cardio final dx-cp, rted prn, meds per med rec, f/u pmd
--- NOTE | 2017-04-29 02:14 | CARD ---
APPROVED REPORT Protocol: ETIENNE Test Type: Stress Nuclear Medications: ASA 81 MG, Medical History: HTN, DYSLIPIDEMA, CAD, FAMILY HISTORY CAD, CARDIA CATH. ANXIETY, ARTHRITIS, ASTHMA, BRONCHITIS, DEPRESSION, FIBROMYALGA, MIGRAINE, Target HR: 172 bpm Resting ECG: normal Resting Heart Rate: 81 bpm Resting Blood Pressure: 116/79mmHg submaximum (85%): 146 bpm TEST SUMMARY EXERCISESTAGE 103:[id number]/60.0. [id number]/79.0. PRETESTHYPERV.00:[id number]/79.0. PRETESTWARM-UP04:[id number]/79.0. EXERCISESTAGE 103:[id number]/60.0. EXERCISESTAGE 203:[id number]/70.0. [id number]/80.0. POST EXERCISE Reason for Termination: Dyspnea and Hip pain Target HR: No Max HR: 117 bpm 68% of Maximum Predicted HR: 172 bpm Exercise duration: 06:00 min:sec, 2 Stage Exercise capacity: 7.0METs Max Blood Pressure: 156/70mmHg Blood Pressure response to exercise: normal resting BP - appropriate response Heart Rate response to exercise: appropriate Chest Pain: No, none Angina index: 0 Arrhythmia: No, none ST Change: No, none Deviation: 0 mm EXAM: Myocardial Perfusion REST/STRESS Image QualityGood Imaging Protocol The imaging protocol used to acquire images was Rest Tc-99m/stress Tc-99m 1 day Rest Spect myocardial perfusion imaging was performed in supine position 45 minutes following the injection of 10 mCi of Tc-99 Myoview. Time of rest injection: 8:00 Time of rest imagin:15 At peak stress, the patient was injected intravenously with 30mCi of Tc-99 tetrofosmin after an infusion time of minutes and seconds. Time of stress injection: 11;55 Time of stress imagin:01 Gated RestStress Spect was performed 60 minutes after intravenous Tc-99 Myoview injection. The images were gated to evaluate regional wall motion and calculate ventricular ejection fraction. NUCLEAR IMAGE INTERPRETATION The rest and stress images show normal perfusion, normal contraction and thickening. LV Perfusion 1 The rest and stress images show normal perfusion. CONCLUSION 1. Negative Myoview stress test at peak Exercise level of 68% of PMHR 2. Poor Exercise tolerance because of Hip arthritis
[2017-04-30] MEDS ORDERED: ALENDRONATE 70 MG TAB PO SCH (09:00)
--- NOTE | 2017-04-30 09:43 | CARD ---
APPROVED REPORT EXAM: Two-dimensional and M-mode echocardiogram with Doppler and color Doppler. Other Information Quality : GoodRhythm : NSR INDICATION Chest Pain 2D DIMENSIONS IVSd1.18 (0.7-1.1cm)LVDd3.68 (3.9-5.9cm) LVOT Diameter1.72 (1.8-2.4cm)PWd1.04 (0.7-1.1cm) IVSs1.36 (0.8-1.2cm)LVDs2.95 (2.5-4.0cm) FS (%) 19.9 %PWs0.97 (0.8-1.2cm) M-Mode DIMENSIONS Left Atrium (MM)3.53 (2.5-4.0cm)IVSd0.85 (0.7-1.1cm) Aortic Root2.71 (2.2-3.7cm)LVDd4.74 (4.0-5.6cm) Aortic Cusp Exc.1.65 (1.5-2.0cm)PWd0.76 (0.7-1.1cm) IVSs1.29 cmFS (%) 28 % LVDs3.41 (2.0-3.8cm)PWs1.12 cm Mitral Valve MV E Kziaynaw97.3cm/sMV DECEL [id number] A Fvystozf55.9cm/s MV OSI71stO/A ratio1.0MVA (PHT)3.06cm2 TDI Lateral E' Peak V8.80cm/sMedial E' Peak V12.10cm/sE/Lateral E'8.4 E/Medial E'6.1 Pulmonary Valve PV Peak Btijclwe59.5cm/s Tricuspid Valve TR Peak Duqpmasz321rw/sRAP [id number] Peak Gr.10mmHg [id number] LEFT VENTRICLE The left ventricle is normal size. There is normal left ventricular wall thickness. The left ventricular function is normal. The left ventricular ejection fraction is within the normal range. The Ejection Fraction is 55-60%. There is normal LV segmental wall motion. The left ventricular diastolic function is normal. No left ventricle thrombus noted on this study. There is no mass noted in the left ventricle. RIGHT VENTRICLE The right ventricle is normal size. There is normal right ventricular wall thickness. The right ventricular systolic function is normal. ATRIA The left atrium size is normal. The right atrium size is normal. The interatrial septum is intact with no evidence for an atrial septal defect. AORTIC VALVE The aortic valve is normal in structure and function. No aortic regurgitation is present. There is no aortic valvular stenosis. There is no aortic valvular vegetation. MITRAL VALVE The mitral valve is normal in structure and function. There is no evidence of mitral valve prolapse. There is no mitral valve stenosis. There is no mitral valve regurgitation noted. TRICUSPID VALVE The tricuspid valve is normal in structure and function. There is no tricuspid valve regurgitation noted. There is no tricuspid valve prolapse or vegetation. There is no tricuspid valve stenosis. PULMONIC VALVE The pulmonary valve is normal in structure and function. There is no pulmonic valvular regurgitation. There is no pulmonic valvular stenosis. GREAT VESSELS The aortic root is normal in size. The IVC is normal in size and collapses >50% with inspiration. PERICARDIAL EFFUSION The pericardium appears normal. There is no pleural effusion. <Conclusion> The left ventricle is normal size. The left ventricular function is normal. The left ventricular ejection fraction is within the normal range. The Ejection Fraction is 55-60%.
== END 2017-04-28 18:45 | disposition home or self-care (01) ==
LOC: H.ER 10:52 → H.ERHOLD 12:51 → H.TEL 15:18
PROVIDERS: ADMIT Family Medicine; ATTEND Family Medicine
DX: R07.89 Other chest pain (principal); E78.5 Hyperlipidemia, unspecified; I10 Essential (primary) hypertension; J45.909 Unspecified asthma, uncomplicated; M79.7 Fibromyalgia; Z82.49 Family history of ischemic heart disease and other diseases of the circulatory system; Z87.891 Personal history of nicotine dependence; M06.9 Rheumatoid arthritis, unspecified; G43.909 Migraine, unspecified, not intractable, without status migrainosus; Z91.040 Latex allergy status; Z88.0 Allergy status to penicillin; Z91.018 Allergy to other foods; Z23 Encounter for immunization
CPT/HCPCS: 36415; 71010; 78452; 80053; 83735; 84484; 85025; 85610; 85730; 90471; 93005; 93017; 93306; 96360; 96361; 99285; A9502; G0378; J7040; Q2035

== ENCOUNTER 2017-05-27 10:44 | Emergency (ER) | payer MEDICAID ==
[2017-05-27 10:47] VITALS: BMI 26.1
[2017-05-27 11:00] VITALS: BP 122/83; PULSE 78; RESP 16; TEMP 98; O2SAT 100
--- NOTE | 2017-05-27 12:16 | ED PDOC ---
HPI: General Adult Time Seen by Provider: 05/27/17 11:03 Chief Complaint (Nursing): Lower Extremity Problem/Injury History Per: Patient Additional Complaint(s): Pt. states earlier today she was sleeping and pulled L knee towards her chest and she suddenly felt a "pop" in the L knee along with a burning sensation. Reports a hx of meniscal repair to both knees. Denies blunt trauma, numbness, tingling, other injury. Past Medical History Reviewed: Historical Data, Nursing Documentation, Vital Signs Vital Signs: Last Vital Signs Temp 98.0 F 05/27/17 11:10 Pulse 78 05/27/17 11:10 Resp 16 05/27/17 11:10 BP 122/83 05/27/17 11:10 Pulse Ox 100 05/27/17 12:16 - Medical History PMH: Anxiety, Arthritis, Asthma (Bronchitis), Bronchitis (4 MONTH AGO), CAD ( early), Depression, Fibromyalgia, HTN, Hypercholesterolemia, Hyperlipidemia, Migraine, Rheumatoid Arthritis Denies: Chronic Kidney Disease - Surgical History Surgical History: Hernia Repair - Family History Family History: States: CAD - Immunization History Hx Tetanus Toxoid Vaccination: No Hx Influenza Vaccination: Yes (2014) Hx Pneumococcal Vaccination: Yes (2013) - Home Medications Home Medications: Ambulatory Orders Medication Instructions Recorded Albuterol HFA [Ventolin HFA 90 2 puff IH Q4H PRN 04/27/17 mcg/actuation (8 g)] Alendronate [Fosamax] 70 mg PO SUN 04/27/17 Amitriptyline HCl 100 mg PO HS 04/27/17 Aspirin [Ecotrin] 81 mg PO DAILY 04/27/17 Atorvastatin [Lipitor] 20 mg PO HS 04/27/17 Calcium Carbonate/Vitamin D3 1 tab PO DAILY 04/27/17 [Caltrate 600 Plus D3 Tablet] Carvedilol [Coreg] 25 mg PO Q12H 04/27/17 Cyclobenzaprine [Flexeril] 5 mg PO Q8H 04/27/17 DULoxetine [Cymbalta] 30 mg PO Q12H 04/27/17 Estradiol [Estrace] 1 mg PO DAILY 04/27/17 Estradiol [Yuvafem] 10 mcg PV MWF 04/27/17 Gabapentin [Neurontin] 600 mg PO TID 04/27/17 Nabumetone [Relafen] 500 mg PO BID 04/27/17 Ondansetron [Zofran Tab] 4 mg PO Q8H PRN 04/27/17 SUMAtriptan [Imitrex Tab] 50 mg PO Q2H PRN 04/27/17 Trazodone HCl 150 mg PO HS 04/27/17 amLODIPine [Norvasc] 5 mg PO DAILY 04/27/17 clonazePAM [Klonopin] 0.25 mg PO BID 04/27/17 - Allergies Allergies/Adverse Reactions: Allergies Allergy/AdvReac Type Severity Reaction Status Date / Time amoxicillin trihydrate Allergy ITCHING Verified 05/27/17 11:09 [From Augmentin] banana Allergy RASH Verified 05/27/17 11:09 latex Allergy RASH Verified 05/27/17 11:09 potassium clavulanate Allergy ITCHING Verified 05/27/17 11:09 [From Augmentin] sulfamethazine Allergy RASH Verified 05/27/17 11:09 sulfamethoxazole Allergy RASH Verified 05/27/17 11:09 [From Bactrim] trimethoprim [From Bactrim] Allergy RASH Verified 05/27/17 11:09 meperidine HCl [From Demerol] AdvReac VOMITING Verified 05/27/17 11:09 Review of Systems ROS Statement: Except As Marked, All Systems Reviewed And Found Negative Physical Exam - Physical Exam Appears: Positive for: Well, Non-toxic, No Acute Distress Skin: Positive for: Normal Color. Negative for: Rash Pulses-Dorsalis Pedis (L): 2+ Extremity: Positive for: Normal ROM (FROM actively of L knee), Other (L knee without swelling, tenderness, warmth, or erythema; no joint laxity). Negative for: Calf Tenderness (b/l) Neurologic/Psych: Positive for: Alert, Oriented - ECG O2 Sat by Pulse Oximetry: 100 - Radiology X-Ray: Interpreted by Me (Knee x-ray) X-Ray Interpretation: No Acute Disease - Progress ED Course And Treament: L knee x-ray ordered. Pt. offered pain meds but refused. Knee immobilized in immobilizer. Crutches provided. Disposition - Clinical Impression Clinical Impression: Knee injury - Patient ED Disposition Is Patient to be Admitted: No - Disposition Referrals: [facility] [Outside] Disposition: Routine/Home Disposition Time: 12:43 Condition: STABLE Instructions: Knee Sprain (ED), Knee Immobilizer (ED), Crutch Instructions (ED) , RICE Therapy (ED) Forms: [facility] (Jamaican) Print Language: MARSHALLESE
--- NOTE | 2017-05-27 13:55 | RAD ---
HISTORY: trauma COMPARISON: No prior FINDINGS: BONES: Normal. No fracture. JOINTS: Normal. No osteoarthritis. SOFT TISSUE: Normal. OTHER FINDINGS: None . IMPRESSION: Normal Bone Xray.
== END 2017-05-27 13:00 | disposition home or self-care (01) ==
LOC: H.ER 10:44
DX: S89.92XA Unspecified injury of left lower leg, initial encounter (principal); X58.XXXA Exposure to other specified factors, initial encounter

== ENCOUNTER 2017-08-22 10:15 | Emergency (ER) | payer MEDICAID ==
[2017-08-22 10:30] VITALS: BMI 30.7
[2017-08-22 10:33] VITALS: BP 112/85; PULSE 70; RESP 16; TEMP 98.1; O2SAT 98
--- NOTE | 2017-08-22 12:19 | ED PDOC ---
HPI: Trauma/Fall - HPI Time Seen by Provider: 08/22/17 10:54 Chief Complaint (Nursing): Trauma Chief Complaint (Provider): Knee pain History Per: Patient Additional Complaint(s): Pt is a 46 yo female, PMH of Fibromyalgia, HTN, OA, presents to ED with complaints of superficial abrasions to face and hands from a mechanical fall yesterday. Pt also fell onto knee, notes right knee pain Past Medical History Reviewed: Historical Data, Nursing Documentation, Vital Signs Vital Signs: Last Vital Signs Temp 98.1 F 08/22/17 10:31 Pulse 70 08/22/17 10:31 Resp 16 08/22/17 10:31 BP 112/85 08/22/17 10:31 Pulse Ox 98 08/22/17 10:31 - Medical History PMH: Anxiety, Arthritis, Asthma (Bronchitis), Bronchitis (4 MONTH AGO), CAD ( early), Depression, Fibromyalgia, HTN, Hypercholesterolemia, Hyperlipidemia, Migraine, Rheumatoid Arthritis Denies: Chronic Kidney Disease - Surgical History Surgical History: Hernia Repair - Family History Family History: States: CAD - Living Arrangements Living Arrangements: With Family - Social History Current smoker - smoking cessation education provided: No Alcohol: None Drugs: Denies - Immunization History Hx Tetanus Toxoid Vaccination: No Hx Influenza Vaccination: Yes (2014) Hx Pneumococcal Vaccination: Yes (2013) - Home Medications Home Medications: Ambulatory Orders Medication Instructions Recorded Albuterol HFA [Ventolin HFA 90 2 puff IH Q4H PRN 04/27/17 mcg/actuation (8 g)] Alendronate [Fosamax] 70 mg PO SUN 04/27/17 Amitriptyline HCl 100 mg PO HS 04/27/17 Aspirin [Ecotrin] 81 mg PO DAILY 04/27/17 Atorvastatin [Lipitor] 20 mg PO HS 04/27/17 Calcium Carbonate/Vitamin D3 1 tab PO DAILY 04/27/17 [Caltrate 600 Plus D3 Tablet] Carvedilol [Coreg] 25 mg PO Q12H 04/27/17 Cyclobenzaprine [Flexeril] 5 mg PO Q8H 04/27/17 DULoxetine [Cymbalta] 30 mg PO Q12H 04/27/17 Estradiol [Estrace] 1 mg PO DAILY 04/27/17 Estradiol [Yuvafem] 10 mcg PV MWF 04/27/17 Gabapentin [Neurontin] 600 mg PO TID 04/27/17 Nabumetone [Relafen] 500 mg PO BID 04/27/17 Ondansetron [Zofran Tab] 4 mg PO Q8H PRN 04/27/17 SUMAtriptan [Imitrex Tab] 50 mg PO Q2H PRN 04/27/17 Trazodone HCl 150 mg PO HS 04/27/17 amLODIPine [Norvasc] 5 mg PO DAILY 04/27/17 clonazePAM [Klonopin] 0.25 mg PO BID 04/27/17 oxyCODONE/Acetaminophen [Percocet 1 ea PO Q6 PRN #5 tab 08/22/17 5/325 mg Tab] - Allergies Allergies/Adverse Reactions: Allergies Allergy/AdvReac Type Severity Reaction Status Date / Time amoxicillin trihydrate Allergy ITCHING Verified 05/27/17 11:09 [From Augmentin] banana Allergy RASH Verified 05/27/17 11:09 latex Allergy RASH Verified 05/27/17 11:09 potassium clavulanate Allergy ITCHING Verified 05/27/17 11:09 [From Augmentin] sulfamethazine Allergy RASH Verified 05/27/17 11:09 sulfamethoxazole Allergy RASH Verified 05/27/17 11:09 [From Bactrim] trimethoprim [From Bactrim] Allergy RASH Verified 05/27/17 11:09 meperidine HCl [From Demerol] AdvReac VOMITING Verified 05/27/17 11:09 Review of Systems ROS Statement: Except As Marked, All Systems Reviewed And Found Negative Musculoskeletal: Positive for: Hand Pain, Leg Pain Skin: Positive for: Other (abrasions) Physical Exam - Reviewed Nursing Documentation Reviewed: Yes Vital Signs Reviewed: Yes - Physical Exam Appears: Positive for: Well, Non-toxic, No Acute Distress Head Exam: Positive for: ATRAUMATIC, NORMAL INSPECTION, NORMOCEPHALIC Skin: Positive for: Normal Color, Warm, DRY Eye Exam: Positive for: EOMI, Normal appearance, PERRL ENT: Positive for: Other (superficial abrasion to nasal tip. ecchymosis to top lip, mild abrasion noted. dentition good). Negative for: Nasal Congestion Neck: Positive for: Normal, Painless ROM Cardiovascular/Chest: Positive for: Regular Rate, Rhythm Respiratory: Positive for: CNT, Normal Breath Sounds Gastrointestinal/Abdominal: Positive for: Normal Exam, Bowel Sounds, Soft Back: Positive for: Normal Inspection Extremity: Positive for: Normal ROM, Tenderness (ro b/l knees, right with mild edema and ecchymosis. palms of bilateraly hands with mild scabbed over abrasions ) Neurologic/Psych: Positive for: Alert, Oriented - ECG O2 Sat by Pulse Oximetry: 98 Medical Decision Making Medical Decision Making: Pt declined analgesics at thsi time. XR: NAd, as read by PAJordana Wound care discussed, as well as RICE therapy. Disposition - Clinical Impression Clinical Impression: Contusion, Abrasion, Fall - Patient ED Disposition Is Patient to be Admitted: No - Disposition Disposition: Routine/Home Disposition Time: 14:11 Condition: STABLE Prescriptions: oxyCODONE/Acetaminophen [Percocet 5/325 mg Tab] 1 ea PO Q6 PRN #5 tab PRN Reason: Pain, Severe (8-10) Instructions: Contusion in Adults (ED), Abrasion (ED) Forms: Contractually (Hungarian)
--- NOTE | 2017-08-22 15:26 | RAD ---
PROCEDURE: Right Knee Radiographs. HISTORY: knee pain COMPARISON: None. FINDINGS: BONES: No fracture. Minimal tibial spine spurring JOINTS: Lateral patellofemoral probable joint space narrowing- lateral patellar orientation. -projection limited. Probable medial femoral tibial joint space narrowing. No prominent medial lateral knee joint line spurring. Anterior patellar cortical hyperostoses/blending quadriceps insertional enthesophyte JOINT EFFUSION: None. OTHER FINDINGS: None. IMPRESSION: No fracture Minimal senescent changes
== END 2017-08-22 14:50 | disposition home or self-care (01) ==
LOC: H.ER 10:15
DX: S00.81XA Abrasion of other part of head, initial encounter (principal); S60.512A Abrasion of left hand, initial encounter; S60.511A Abrasion of right hand, initial encounter; W19.XXXA Unspecified fall, initial encounter; J45.909 Unspecified asthma, uncomplicated; M06.9 Rheumatoid arthritis, unspecified; Z86.59 Personal history of other mental and behavioral disorders; I10 Essential (primary) hypertension; Z82.49 Family history of ischemic heart disease and other diseases of the circulatory system